=== PATIENT | female | born 1940 | race Caucasian/White ===

== ENCOUNTER 2017-06-12 13:15 | Emergency (ER) | payer OTHER ==
[~2017-06-12] VITALS: Ht 165.1 cm; Wt 89.0 kg
[~2017-06-12 13:15] MED LIST: ASPI81TA3 PO; AZOR PO; LIRA0.6P SQ
[2017-06-12 13:24] VITALS: Ht 165.1 cm; Wt 89.0 kg
[2017-06-12 15:09] LABS: BASOPHILS % 0.5 % (0.0-2.0); EOSINOPHILS # 0.4 10^3/ul (0.0-0.5); EOSINOPHILS % 11.3 % (0.0-7.0); HEMATOCRIT 38.1 % (37.0-47.0); HEMOGLOBIN 12.9 g/dl (12.0-16.0); LYMPHOCYTES # 1.1 10^3/ul (0.8-2.9); LYMPHOCYTES % 28.5 % (15.0-51.0); MEAN CORPUSCULAR HEMOGLOBIN 33.5 pg (29.0-33.0); MEAN CORPUSCULAR HGB CONC 33.9 g/dl (32.0-37.0); MEAN PLATELET VOLUME 10.1 fl (7.4-10.4); MONOCYTE # 0.3 10^3/ul (0.3-0.9); MONOCYTES % 8.9 % (0.0-11.0); NEUTROPHILS % 50.5 % (39.0-77.0); PLATELET COUNT 128 10^3/UL (140-415); RED BLOOD COUNT 3.85 10^6/ul (4.20-5.40); RED CELL DISTRIBUTION WIDTH 12.7 % (11.5-14.5); WHITE BLOOD COUNT 3.8 10^3/ul (4.8-10.8)
--- NOTE | 2017-06-12 15:20 | RADRPT ---
PROCEDURE: Chest radiograph CLINICAL INDICATION: Chest Pain.. COMPARISON: Radiograph 12/09/2007. TECHNIQUE: Single frontal chest radiograph. FINDINGS: Mild pulmonary vascular congestion No pleural effusion or focal parenchymal opacity. Cardiomegaly. Aortic atherosclerosis. No suspicious bone lesion. IMPRESSION: Cardiomegaly with mild pulmonary vascular congestion. RPTAT: [facility] Fei Clemente Physician Date Time Electronically viewed and signed by Fei Clemente Physician on 06/12/2017 15:19 LG/
[2017-06-12 15:26] LABS: ALANINE AMINOTRANSFERASE 29 IU/L (13-69); ALBUMIN 3.3 g/dl (3.3-4.9); ALBUMIN/GLOBULIN RATIO 0.89; ALKALINE PHOSPHATASE 153 IU/L (42-121); ANION GAP 14 (8-16); ASPARTATE AMINO TRANSFERASE 41 IU/L (15-46); BILIRUBIN,INDIRECT 1.3 mg/dl (0-1.1); BILIRUBIN,TOTAL 1.3 mg/dl (0.2-1.3); BLOOD UREA NITROGEN 8 mg/dl (7-20); CALCIUM 8.7 mg/dl (8.4-10.2); CARBON DIOXIDE 27 mmol/L (21-31); CHLORIDE 101 mmol/L (97-110); CREATININE 0.59 mg/dl (0.44-1.00); GLUCOSE 272 mg/dl (70-220); SODIUM 138 mmol/L (135-144)
[2017-06-12 15:27] LABS: INR 1.13; PROTIME 14.5 Sec (12.2-14.2); PT RATIO 1.1
[2017-06-12 15:28] LABS: PARTIAL THROMBOPLASTIN TIME 31.6 Sec (25.0-35.0)
[2017-06-12 15:38] LABS: B-TYPE NATRIURETIC PEPTIDE 450 PG/ML (0-450)
--- NOTE | 2017-06-12 15:38 | ERA ---
ER Documentation Chief Complaint Date/Time DATE: 06/12/17 TIME: 15:33 Chief Complaint cough,st, since HPI 76-year-old female presents with 3 days of chest pain, shortness of breath, and cough. Patient has not taken any medications to relieve the symptoms. Denies any past medical history. Denies any past surgical history. Patient is on 5 medications but does not recall what they are. Denies any significant family history. Patient denies radiation of pain, squeezing-like chest pain, recent travel, upper back pain, aching arm pain/numbness, leg pain/swelling, fatigue, dyspnea, syncope, irregular heart beat, or epigastric pain. Patient has no other complaints and describes no other associated manifestations. Nursing notes have been reviewed and are consistent with history given. ROS All systems reviewed and are negative except as per history of present illness. Medications Home Meds Active Scripts Benzonatate* (Benzonatate*) 200 Mg Capsule, 200 MG PO TID Y for COUGH, #20 CAP Prov:ANY LUTZ PA-C 06/12/17 Acetaminophen* (Tylophen*) 500 Mg Capsule, 1 CAP PO Q6H Y for PAIN AND OR ELEVATED TEMP, #20 CAP Prov:LJ QUINTANILLA PA-C 06/12/17 Reported Medications Liraglutide (Victoza 2-Nathaniel) 0.6 Mg/0.1 Ml Pen.injctr, 1.2 MG SQ DAILY, SYR 12/24/14 Aspirin (Aspirin) 81 Mg Chew, 81 MG PO DAILY, TAB.CHEW 12/24/14 [Cary] No Conflict Check, MG PO DAILY 12/24/14 Allergies Allergies: Coded Allergies: Penicillins (Verified Allergy, Mild, 12/24/14) PMhx/Soc History of Surgery: No (see medical report) Anesthesia Reaction: No Hx Neurological Disorder: No Hx Respiratory Disorders: No Hx Cardiac Disorders: Yes (HTN) Hx Psychiatric Problems: No Hx Miscellaneous Medical Probl: Yes (DM TYPE II) Hx Alcohol Use: No Hx Substance Use: No Hx Tobacco Use: No Smoking Status: Never smoker Physical Exam Vitals Vital Signs Date Time Temp Pulse Resp B/P Pulse Ox O2 Delivery O2 Flow Rate FiO2 06/12/17 18:44 60 17 150/107 97 Room Air 06/12/17 14:34 Nasal Cannula 2 06/12/17 13:24 98.1 77 18 121/62 99 Physical Exam Const: Obese 76-year-old female and a mild distress. Head: Atraumatic Eyes: Normal Conjunctiva ENT: Normal External Ears, Nose and Mouth. Neck: Full range of motion..~ No meningismus. Resp: Clear to auscultation bilaterally. Pleuritic chest pain with deep inspirations. Cardio: Regular rate and rhythm, no murmurs Abd: Soft, non tender, non distended. Normal bowel sounds Skin: No petechiae or rashes Back: No midline or flank tenderness Ext: No cyanosis. 3+ pitting edema bilaterally. Neur: Awake and alert Psych: Normal Mood and Affect Result Diagram: 06/12/17 1415 06/12/17 1415 Results 24 hrs Laboratory Tests Test 06/12/17 14:15 06/12/17 14:27 White Blood Count 3.810^3/ul Red Blood Count 3.8510^6/ul Hemoglobin 12.9g/dl Hematocrit 38.1% Mean Corpuscular Volume 99.0fl Mean Corpuscular Hemoglobin 33.5pg Mean Corpuscular Hemoglobin Concent 33.9g/dl Red Cell Distribution Width 12.7% Platelet Count 16953^3/UL Mean Platelet Volume 10.1fl Neutrophils % 50.5% Lymphocytes % 28.5% Monocytes % 8.9% Eosinophils % 11.3% Basophils % 0.5% Nucleated Red Blood Cells % 0.0/100WBC Neutrophils # (Manual) 1.910^3/ul Lymphocytes # 1.110^3/ul Monocytes # 0.310^3/ul Eosinophils # 0.410^3/ul Basophils # 0.010^3/ul Nucleated Red Blood Cells # 0.010^3/ul Prothrombin Time 14.5Sec Prothrombin Time Ratio 1.1 INR International Normalized Ratio 1.13 Activated Partial Thromboplast Time 31.6Sec Sodium Level 138mmol/L Potassium Level 4.0mmol/L Chloride Level 101mmol/L Carbon Dioxide Level 27mmol/L Anion Gap 14 Blood Urea Nitrogen 8mg/dl Creatinine 0.59mg/dl Glucose Level 272mg/dl Calcium Level 8.7mg/dl Total Bilirubin 1.3mg/dl Direct Bilirubin 0.00mg/dl Indirect Bilirubin 1.3mg/dl Aspartate Amino Transf (AST/SGOT) 41IU/L Alanine Aminotransferase (ALT/SGPT) 29IU/L Alkaline Phosphatase 153IU/L Troponin I < 0.012ng/ml B-Type Natriuretic Peptide 450PG/ML Total Protein 7.0g/dl Albumin 3.3g/dl Globulin 3.70g/dl Albumin/Globulin Ratio 0.89 Bedside Glucose 277mg/dL Current Medications Medications (Trade) Dose Ordered Sig/Mason Route PRN Reason Start Time Stop Time Status Last Admin Dose Admin IV Flush 10 ml 10 ml STK-MED ONCE .ROUTE 06/12/17 17:15 06/12/17 17:16 DC Sodium Chloride (NS) 100 ml @ ud STK-MED ONCE .ROUTE 06/12/17 17:15 06/12/17 17:16 DC Iodixanol (Visipaque Locm) 100 ml STK-MED ONCE .ROUTE 06/12/17 17:15 06/12/17 17:16 DC Procedures/MDM 76-year-old female with a history of hypertension, hyperlipidemia, and diabetes mellitus who presents with chest pain shortness of breath as described in history and physical examination. Labs were obtained and resulted in the following: White blood cell 3.8, eosinophil 11.3, platelet 128, CMP: Glucose 272, alk phos 153 PT 14.5 Chest x-ray was obtained, read by the radiologist given the following impression : Cardiomegaly with mild pulmonary vascular congestion. I reviewed the case with my attending Dr. Davis who suggested CT angiogram to rule out PE. Patient at this time was handed off to GUNJAN Rosario at this time. CTPA (upon review of case) was read by the radiologist given the following impression: No evidence of pulmonary artery embolism. Dilated pulmonary arteries consistent with pulmonary artery hypertension. Atherosclerosis. Cardiomegaly. Hepatomegaly with nodular surface of liver consistent with cirrhosis. Gallstones and palpable gallbladder remnant with surgical clips from previous probable partial cholecystectomy. Splenomegaly. Probable benign 2.12.0 cm left adrenal nodule. Follow-up CT scan in 6 months advised. Mild degenerative changes of the spine. Departure Diagnosis: Primary Impression: Chest pain Qualified Code: R07.1 - Chest pain on breathing Condition: Stable Additional Instructions: Case handed off to GUNJAN Rosario MICHAEL PA-C Jun 12, 2017 15:38
[2017-06-12 16:04] LABS: TROPONIN-I < 0.012 ng/ml (0.00-0.12)
[2017-06-12] MEDS ORDERED: IODIXANOL LOCM 100 ML BTL ONE (17:15)
[2017-06-12] MEDS ORDERED: SOD CHLORIDE 0.9% 100 ML ONE (17:15)
--- NOTE | 2017-06-12 17:55 | RADRPT ---
PROCEDURE: CT Pulmonary Angiogram. CLINICAL INDICATION: Chest pain and shortness of breath. TECHNIQUE: CT pulmonary angiogram and a CT scan of the chest with contrast was performed. The pat ient was scanned following the uncomplicated intravenous administration of 100 cc of Visipaque 320 i ntravenous contrast. 2-D coronal reformatted images were obtained from the axial source images. In addition, 3-D post processing was performed. Total exam DLP is 748.46 mGy-cm. CTDIvol is 35.21 mG y. One or more of the following dose reduction techniques were used: Automated exposure control, ad justment of the mA and/or kV according to patient size, use of iterative reconstruction technique. COMPARISON: None available. FINDINGS: The pulmonary arteries are dilated but otherwise normal with no filling defect or lack of enhancemen t to suggest pulmonary artery embolism. The lungs are clear. There is no pulmonary airspace or interstitial disease. There is no pulmonary nodule or mass lesion. There is no pneumothorax. There is no mediastinal or hilar lymphadenopathy or mass. There is no pleural effusion. There is no pericardial effusion. The thoracic aorta is not dilated. There is calcification in the aorta consistent with atherosclero sis. The heart is enlarged. Images through the upper abdomen demonstrate hepatomegaly with a nodular surface of the liver consis tent with cirrhosis. Gallstones are present in the gallbladder remnant. Surgical clips are present in the gallbladder bed which may indicate previous partial cholecystectomy. The spleen is enlarged . There is a left adrenal low attenuation nodule measuring 2.1 x 2.[address] number of 10 gayle cating it is probably benign. The right adrenal is normal. There are degenerative changes of the spine with small osteophytes in the mid thoracic spine. The d isk height is normal. IMPRESSION: 1. No evidence of pulmonary artery embolism. 2. Dilated pulmonary arteries consistent with pulmonary artery hypertension. 3. Atherosclerosis. 4. Cardiomegaly. 5. Hepatomegaly with nodular surface of liver consistent with cirrhosis. 6. Gallstones and a probable gallbladder remnant with surgical clips from previous probable partial cholecystectomy. 7. Splenomegaly. 8. Probably benign 2.1 x 2.0 cm left adrenal nodule. Follow-up CT scan in 6 months advised. 9. Mild degenerative changes of the spine. RPTAT: QQ .Cash Pompa MD, MD Date Time Electronically viewed and signed by .Cash Pompa MD, MD on 06/12/2017 17:55 .R/
[2017-06-12] MEDS ORDERED: ACET500C5 PO (17:57)
[2017-06-12] MEDS ORDERED: BENZ200C43 PO (18:37)
[2017-06-12 18:44] VITALS: BP 150/107; PULSE 60; RESP 17
== END 2017-06-12 19:18 | disposition home or self-care (01) ==
LOC: FTE 13:15
DX: R07.1 Chest pain on breathing (principal); I10 Essential (primary) hypertension; E11.9 Type 2 diabetes mellitus without complications; E66.9 Obesity, unspecified; R06.02 Shortness of breath; Z68.32 Body mass index [BMI] 32.0-32.9, adult; Z79.82 Long term (current) use of aspirin
CPT/HCPCS: 36415; 71010; 71275; 80053; 82962; 83880; 84484; 85025; 85610; 85730; 93005; 99285; Q9967

== ENCOUNTER 2017-12-15 13:02 | Emergency (ER) | END 2017-12-15 15:00 | disposition home or self-care (01) ==